=== PATIENT | female | born 1990 | race Caucasian/White ===

== ENCOUNTER 2016-12-06 05:15 | Inpatient (IN) | payer OTHER ==
[~2016-12-06] VITALS: Ht 165.1 cm; Wt 106.1 kg
[~2016-12-06 05:15] MED LIST: FUR20 PO; POTA20TA16 PO
[2016-12-06] MEDS ORDERED: Lactated Ringer's 1,000 ML IV PRN (05:38)
[2016-12-06] MEDS ORDERED: Carboprost 250 mCg/mL Inj IM PRN ×2 (05:40→10:35)
[2016-12-06] MEDS ORDERED: Methylergonovine 0.2 mg/mL Inj IM PRN ×2 (05:40→10:35)
[2016-12-06] MEDS ORDERED: Hemorrhage Kit, Post Partum XX ONE ×2 (05:40→10:35)
[2016-12-06] MEDS ORDERED: Ondansetron 2 mg/mL 2 mL Inj IVPUSH PRN ×2 (05:40→05:55)
[2016-12-06] MEDS ORDERED: Oxytocin 10 Unit/mL Inj IM PRN ×2 (05:40→10:35)
[2016-12-06] MEDS ORDERED: fentaNYL-PF 50 mCg/mL 2 mL Inj IVPUSH PRN (05:40)
[2016-12-06] MEDS ORDERED: Sodium Chloride LOK Flush 10 mL Syringe IVFLUSH PRN (05:40)
[2016-12-06] MEDS ORDERED: Penicillin G K Inj 5,000,000 UNITS in Dextrose 5% Minibag Plus 100 ML IV ONE (05:40)
[2016-12-06] MEDS ORDERED: Oxytocin 30 Units/500 mL LR 30 UNITS in IV Premix 1 EACH IV PRN (05:40)
[2016-12-06] MEDS ORDERED: Lactated Ringer's 500 ML IV ONE (05:52)
[2016-12-06] MEDS ORDERED: Lactated Ringer's 1,000 ML IV SCH (05:52)
[2016-12-06] MEDS ORDERED: Atropine 1 mg/10 mL (Code) Syringe IVPUSH PRN (05:55)
[2016-12-06] MEDS ORDERED: fentaNYL 2 mCg/mL-Bupiv 0.125% 100 ML EPIDURAL SCH (05:55)
[2016-12-06] MEDS ORDERED: EPHEDrine Sulfate 50 mg/mL Inj IVPUSH PRN (05:55)
[2016-12-06 06:07] LABS: Mean Corpuscular Hemoglobin 29.9 pg (27.0-35.0); Mean Corpuscular Volume 86.1 fL (81-100)
--- NOTE | 2016-12-06 06:51 | PCM.HPANE ---
Patient Data Surgeon Admitting Provider:Elier Matthew MD Attending Provider:Elier Matthew MD Primary Care Physician:Yarely East Other Provider:Sheryl Marvin Anesthesia Reason for Visit Term Labor TERM LABOR Ht/WT & BMI Body Mass Index Allergies Coded Allergies: No Known Allergies (Verified Allergy, Unknown, 11/28/15) Diabetes History Hx Diabetes?: No Medications Hypertension Medication: No Home Meds Incl Beta Cassidy: No Active Scripts Potassium Chloride 20 Meq Tab.er.prt20 Meq PO DAILY #2 TABLET Ref 0 TAKE WITH FOOD Prov:Daren Em MD 11/28/15 Furosemide 20 Mg Tab20 Mg PO DAILY #2 TABLET Ref 0 Prov:Daren Em MD 11/28/15 History History of ENT Problems?: No Hx of Heart Problems?: Yes Cardiovascular History: Positive for:: Hypertension Denies:: Congestive Heart Failure Hx of Respiratory Problem?: No Respiratory History: Denies:: Tuberculosis Hx Neurologic Problems?: No Hx of GI Problems?: No Hx of Problems?: No Female Hx: Positive for:: Currently Hx Surgeries?: No Hx Diabetes: No Hx Alcohol Use: YesHx Substance Use: Yes (douglas) Smoking Status: Current Every Day Smoker Stop/Bang LUIS Risk Assessment: Low Risk, <3 Yes Risk Assessment Category Category 1A: Patient has history of documented sleep apnea, and HAS NOT received any narcotic, sedative or anesthesia administration during this stay. Category 1B: Patient has history of documented sleep apnea, and HAS received any narcotic , sedative or anesthesia administration during this stay Category 2: Patient has SUSPECTED Obstructive Sleep Apnea, and HAS received any narcotic , sedative or anesthesia administration during this stay. Category 3: Patient has SUSPECTED Obstructive Sleep Apnea and HAS NOT received narcotic, sedative or anesthesia administration during this stay. Category 4: Outpatient in Procedural Areas with known sleep apnea or who screen positive for High Risk via the STOP/BANG questionnaire. Exam Exam General Appearance: Alert, Oriented X3, Cooperative, No Acute Distress HEENT/AIRWAY: MP 2 Lungs: Clear to Auscultation, Normal Air Movement Heart: Exam Unremarkable, Regular Rate/Rhythm, No Murmurs/Rubs/Gallops Meds/Labs/Diagnostics Admission Meds Current Medications Penicillin G Potassium/ Dextrose/Water (Pfizerpen Inj/ D5W Minibag Plus) 100 ml @ 240 mls/hr ONCE ONCE IV Last administered on 12/06/16t 06:20; Start at 05:40; Stop 12/06/16 at 06:04; Status DC Labs Test 12/06/16 06:00 White Blood Count 19.2th/mm3 (3.8-10.1) Red Blood Count 4.68mil/mm3 (3.90-5.20) Hemoglobin 14.0g/dL (12.0-15.6) Hematocrit 40.3% (35.0-46.0) Mean Corpuscular Volume 86.1fL (81-100) Mean Corpuscular Hemoglobin 29.9pg (27.0-35.0) Mean Corpuscular Hemoglobin Concent 34.7% (32.0-37.0) Red Cell Distribution Width 13.2% (12.3-15.4) Platelet Count 281bil/L (150-400) Plan Impression Patient chart reviewed, patient interviewed and anesthestic plan with risks, benefits, and alternatives discussed, and informed consent obtained. ASA Physical Status: ASA2 Mod Systemic Disease Anesthetic Plan: Epidural Bene/Risks/Altern/Consents: Yes HP Complete Prior to Induction: Yes Roni Sauceda MD Dec 06, 2016 06:25
--- NOTE | 2016-12-06 08:56 | PCM.HPOB ---
Subjective Date of Service: Dec 06, 2016 Referring Provider: Admitting Physician: Elier Matthew MD Primary Care Physician: Yarely East Attending Physician: Elier Matthew MD Chief Complaint Term labor History of Present History of Present Illness 26-year-old at 39wks 4days per anatomy US on 05/02/2016 and HELDER of 12/09/16 who presented [facility] with contractions. She was found to be 6cm dilated, 90% effaced and at -1 station in triage. complicated by tobacco and marijuana use. US on 10/30/16 showed 47th percentile for growth, normal BRAEDEN and a footling breach presentation. Vertex presentation was verified by office US on 11/08/16. 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 10/100%/+1, NAD. Epidural in place. Constitutional: Well-developed, Well-nourished, Obese HEENT: Atraumatic Lungs: Clear to Auscultation Heart: Exam Unremarkable, Regular Rate/Rhythm, Normal S1, Normal S2, No Murmurs /Rubs/Gallops Abdomen: Gravid Extremities: Pulses Palpable x4 Neurological/Psychiatric: Alert, Oriented X3, Cooperative Neuro: Grossly Neurologically Intact Labs/Diagnostics Lab/Diagnostic Information GBS- positive D(Rh) type- positive Varicella and Rubella Immune. Antibody screen- negative RPR-nonreactive HBsAg- negative HIV-nonreactive TSH 0.928 HepC neg HbA1c 5.0 Urine Drug screen Negative. Maternal Blood Type: O Hx Rho(D) Immune Globulin: Yes Group B Strep Results: Positive Previous with GBS: No Rubella: Immune Lab History: Positive for: Hx Chicken Pox, Negative for: Hx Gonorrhea, Hx HIV, Hx Herpes, Hx Syphilis OB Intrapartum Assessment/Plan Assessment 26yo F, at term labor, meconium stained amniotic fluid after AROM. Fetus with baseline tachycardia and variable decelerations with contractions and pushing. Problems: (1) Term Status: Acute ICD Code: Z34.80 (2) Artificial rupture of membranes antepartum Status: Acute ICD Code: O75.5 (3) tachycardia Status: Acute ICD Code: [id number] (4) Thick meconium stained amniotic fluid Status: Acute ICD Code: P96.83 (5) Plan: Pitocin labor augmentation. Anticipate vaginal delivery. Status: Acute ICD Code: Z33.1 Pain Management: Epidural in Place. Transition to Oral Analgesics following delivery. Pain Evaluation: Adequate Pain Control Post plan: Continue routine post care, Discharge home tomorrow Attending Statement The patient was seen and examined together with Luc Mac DO on 12/06 and I agree with the history, exam and plan as outlined in the note above. Luc Bustamante DO Dec 06, 2016 07:47 Jose Raul Robles MD Dec 13, 2016 08:16
[2016-12-06] MEDS ORDERED: LANOlin HPA 7 Gm Ointment TOPICAL PRN (10:35)
[2016-12-06] MEDS ORDERED: Benzocaine (Dermoplast) 20% 60 Gm Spray TOPICAL PRN (10:35)
[2016-12-06] MEDS ORDERED: Witch Hazel-Glycerin Pads TOPICAL PRN (10:35)
--- NOTE | 2016-12-06 11:17 | PCM.OBVAG ---
Vaginal Delivery Date of Service Dec 06, 2016 Pre Operative Diagnosis Pre Operative Diagnosis Normal Vaginal Delivery Thick Meconium Stained Amniotic Fluid. Tachycardia Post Operative Diagnosis Post Operative Diagnosis Normal Vaginal Delivery Thick Meconium Stained Amniotic Fluid. Tachycardia Procedure Obstetical Procedure: Normal Spontaneous Vaginal Delivery Credit Administration Specialist/Chef Passenger Vessel Provider and Chef Passenger Vessel: Dr. Jose Raul Robles MD attending Luc Bustamante DO R2 Indication for Procedure Induction: Active labor, Pitocin augmentation, AROM, Progressed normally through labor Findings Obstetrical Findings: [place] (Male), Cord (3 Vessel), Weight (3254 grams ), Presentation (ARCHANA), 1 minute (2), 5 minutes (8), Placenta (Intact /Normal) Analgesia/Medications Obstetrical Anesthesia: Epidural Procedure Details Procedure Details Patient is an 26yo now who presented to Labor and Delivery the morning of November 04 for symptoms labor. She desired an epidural and one was placed. She is a GBS carrier and had 1 dose of penicillin prior to starting augmentation with oxytocin, she received a second dose while in active labor. She made normal progress through labor and was found to be complete about 08: 30. Her membranes were ruptured and there was thick amount of green meconium. Neonatology was called and was present for the . She began pushing. FHR was baseline 150-160s with some variable decelerations. Procedure: A sterile drape was placed under the patient's buttocks and with expulsive efforts, she delivered head over an intact perineum. No nuchal cord. The rest of the body was delivered, immediately the cord was double clamped and ligated and the was passed to the innersole maker, where warming and stimulation were applied. The infant was delivered at 10:20am, APGARs 2 and 8 The placenta then delivered spontaneously intact at 10:30am with a three vessel cord. Uterus firmed with manual external massage. The perineum was examined and there was only a superficial laceration to introitus not bleeding. The patient and infant tolerated the procedure well and pt is stable in her room. Blood Loss & Administration Estimated Blood Loss: 200 Blood Admin during procedure: No Post Procedure Plan Post Procedure Plan Routine post care. Perineal support and care. Encourage breast feeding. Encourage early ambulation. Analgesia with Ibuprofen and Percocet. Post delivery Condition: Mom stable VTE Prophylaxis: Other (Ambulation.) Attending Statement I was present and assisted Dr. Keenan for the entire procedure and agree with the above documentation. Luc Bustamante DO Dec 06, 2016 11:17 Jose Raul Robles MD Dec 13, 2016 08:18
[2016-12-06] MEDS ORDERED: Penicillin G K Inj 3,000,000 UNITS in IV Premix 1 EACH IV SCH (12:30)
[2016-12-06] MEDS: Ascorbic Acid 500 mg Tablet PO SCH (17:00)
[2016-12-06] MEDS: oxyCODONE-Acetamin 5-325 mg Tablet PO PRN (20:30)
[2016-12-06] MEDS: Lactated Ringer's 1,000 ML IV SCH (22:40)
[2016-12-07] MEDS: oxyCODONE-Acetamin 5-325 mg Tablet PO PRN ×3 (02:45→14:18)
[2016-12-07 07:03] LABS: Mean Corpuscular Hemoglobin 29.7 pg (27.0-35.0); Mean Corpuscular Volume 87.8 fL (81-100)
[2016-12-07] MEDS: Ascorbic Acid 500 mg Tablet PO SCH (08:18)
[2016-12-07] MEDS ORDERED: FERR-74 PO (09:57)
[2016-12-07] MEDS ORDERED: DOCU-41 PO (09:57)
[2016-12-07] MEDS ORDERED: Ascorbic Acid PO (09:57)
[2016-12-07] MEDS ORDERED: IBUP800T28 PO (09:57)
--- NOTE | 2016-12-07 10:00 | PCM.DIOB ---
Obstetrical Disch Instruction Date of Service: Dec 07, 2016 Dates of Hospitalization Date of Hospital Admission Dec 06, 2016 at 05:42 Providers Admitting Physician: Elier Mathtew MD Primary Care Physician: Yarely East Attending Physician: Elier Matthew MD Discharge Diagnosis Discharge Diagnosis Term Problems: Diet Discharge Diet: No restrictions Activity Discharge Activity-General: Pelvic Rest for 6 weeks Additional Instructions Discharge Instructions Continue your vitamin. Please take the iron and vitamin c together for your anemia. Be sure to follow up in 6 weeks at [facility]. Pelvic rest for 6 weeks (nothing per vagina including intercourse, tampons) If you have a fever greater than 100.4, please call [facility]. There is always someone second facing baster to talk to. If you have an increase in bleeding, call [facility]. If you have a lot of bleeding suddenly, especially if you have symptoms of dizziness & weakness with it, get emergency help. When you see [facility] in two weeks, you will be informed of the results of all the labs. If you start experiencing extreme depression, especially if you feel that you are a danger to yourself or your family, seek emergency help. You have been through a lot -- BE SURE TO TAKE CARE OF YOURSELF. Follow Up Plan Follow Up Plan Follow up in 6 weeks. Follow-up Provider (F9): [facility] Call your provider for: Fever or Chills, Shortness of breath, Heavy vaginal bleeding, Excessive constipation Sussy Gallo DO Dec 07, 2016 10:00
--- NOTE | 2016-12-07 10:20 | PCM.DC.OB ---
Obstetrical Discharge Summary Date of Service Dec 07, 2016 Date of hospital admission Dec 06, 2016 at 05:42 Date of Discharge: Dec 07, 2016 Providers Admitting Physician: Elier Matthew MD Primary Care Physician: Yarely East Attending Physician: Elier Matthew MD Problems: (1) Term Status: Acute ICD Code: Z34.80 (2) Artificial rupture of membranes antepartum Status: Acute ICD Code: O75.5 (3) tachycardia Status: Acute ICD Code: [id number] (4) Thick meconium stained amniotic fluid Status: Acute ICD Code: P96.83 Brief History and Physical: 26yo now P1 post- day 1 from [facility] with meconium stained amniotic fluid visualized after AROM. Vital Signs: T 36.8, BP 105/61, HR 71, RR 18/81, HR 83 Constitutional: Well-developed, Obese Lungs: Clear to Auscultation Heart: Regular Rate/Rhythm, No Murmurs/Rubs/Gallops Abdomen: Soft, appropriately tender, fundus firm Extremities: Trace edema, pulses intact/equal bilaterally Neuro/psych: AOx3, normal mood & affect . Hospital Course: 26y/o who presented to the [facility] with contractions at 39wks 4days. She presented at 39wks 4days per US on and found to be 6cm dilated , 90% effaced and at -1 station in triage. complicated by tobacco and marijuana use. US on 10/30/16 showed 47th percentile for growth, normal BRAEDEN and a footling breach presentation. Vertex presentation was verified by office US on . GBS- positive D(Rh) type- positive Varicella and Rubella Immune. Antibody screen- negative RPR-nonreactive HBsAg- negative HIV-nonreactive TSH 0.928 HepC neg HbA1c 5.0 Urine Drug screen Negative. ([Ascorbic Acid]) 500 MG TABLET 500 MG PO DAILY Prescribed by: JACKIE SANTOS DO Docusate Sodium (Colace) 100 Mg Capsule 100 MG PO BID Prescribed by: JACKIE SANTOS DO Ferrous Sulfate (Feosol) 325 Mg Tablet 325 MG PO DAILY Prescribed by: JACKIE SANTOS DO Furosemide (Furosemide) 20 Mg Tab 20 MG PO DAILY Prescribed by: AILYN ZURITA MD Ibuprofen (Ibuprofen) 800 Mg Tablet 800 MG PO Q8H PRN PRN For Pain Prescribed by: JACKIE SANTOS, Potassium Chloride (Potassium Chloride) 20 Meq Tab.er.prt 20 MEQ PO DAILY TAKE WITH FOOD Prescribed by: AILYN ZURITA MD Follow-up plan Follow up in 6wks at [facility]. Discharge Diet: No restrictions Discharge Activity-General: Pelvic Rest for 6 weeks Patient instructions Continue your vitamin. Please take the iron and vitamin c together for your anemia. Be sure to follow up in 6 weeks at [facility]. Pelvic rest for 6 weeks (nothing per vagina including intercourse, tampons) If you have a fever greater than 100.4, please call [facility]. There is always someone production officer to talk to. If you have an increase in bleeding, call [facility]. If you have a lot of bleeding suddenly, especially if you have symptoms of dizziness & weakness with it, get emergency help. When you see [facility] in two weeks, you will be informed of the results of all the labs. If you start experiencing extreme depression, especially if you feel that you are a danger to yourself or your family, seek emergency help. You have been through a lot -- BE SURE TO TAKE CARE OF YOURSELF. copies to: Yarely East Courtney M DO Dec 07, 2016 10:01
[2016-12-07] MEDS: Lactated Ringer's 1,000 ML IV SCH (10:34)
[2016-12-07 10:35] VITALS: BP 105/61; PULSE 71; RESP 18
[2016-12-07] MEDS ORDERED: OXYC1TAB24 PO (11:12)
--- NOTE | 2016-12-07 11:15 | PCM.DIOB ---
Obstetrical Disch Instruction Dates of Hospitalization Date of Hospital Admission Dec 06, 2016 at 05:42 Providers Admitting Physician: Elier Matthew MD Primary Care Physician: Yarely East Attending Physician: Elier Matthew MD Discharge Diagnosis Discharge Diagnosis Term Problems: (1) Term Status: Acute ICD Code: Z34.80 (2) Artificial rupture of membranes antepartum Status: Acute ICD Code: O75.5 (3) tachycardia Status: Acute ICD Code: [id number] (4) Thick meconium stained amniotic fluid Status: Acute ICD Code: P96.83 Diet Discharge Diet: No restrictions Activity Discharge Activity-General: Pelvic Rest for 6 weeks Additional Instructions Discharge Instructions Continue your vitamin. Please take the iron and vitamin c together for your anemia. Be sure to follow up in 6 weeks at [facility]. Pelvic rest for 6 weeks (nothing per vagina including intercourse, tampons) Do not take more pain medication (Percocet) than is necessary -- less is better. Percocet pills have Tylenol (acetaminophen) in them at 325mg per pill. Do not take Tylenol in addition to your pain medication but should take one or the other. Both iron and Percocet can give you constipation so you have also been given a prescription for docusate to keep you regular. If you have a fever greater than 100.4, please call [facility]. There is always someone electron tube assembler to talk to. If you have an increase in bleeding, call [facility]. If you have a lot of bleeding suddenly, especially if you have symptoms of dizziness & weakness with it, get emergency help. When you see [facility] in two weeks, you will be informed of the results of all the labs. If you start experiencing extreme depression, especially if you feel that you are a danger to yourself or your family, seek emergency help. You have been through a lot -- BE SURE TO TAKE CARE OF YOURSELF. Follow Up Plan Follow-up Provider (F9): [facility] Call your provider for: Fever or Chills, Shortness of breath, Heavy vaginal bleeding, Excessive constipation Sussy Gallo DO Dec 07, 2016 11:14
== END 2016-12-07 14:31 | disposition home or self-care (01) | DRG 775 ==
LOC: FBCO 05:15 → FBC 05:42
PROVIDERS: ADMIT Legal Medicine; ATTEND Legal Medicine
PROC: 10E0XZZ Delivery of Products of Conception, External Approach (ICD-10-PCS; principal; 2016-12-06)
PROC: 10907ZC Drainage of Amniotic Fluid, Therapeutic from Products of Conception, Via Natural or Artificial Opening (ICD-10-PCS; 2016-12-06)
DX: O77.0 Labor and delivery complicated by meconium in amniotic fluid (principal); O99.323 Drug use complicating pregnancy, third trimester; Z3A.39 39 weeks gestation of pregnancy; O99.333 Smoking (tobacco) complicating pregnancy, third trimester; F17.210 Nicotine dependence, cigarettes, uncomplicated; F12.10 Cannabis abuse, uncomplicated; O99.820 Streptococcus B carrier state complicating pregnancy; O76 Abnormality in fetal heart rate and rhythm complicating labor and delivery; Z37.0 Single live birth